=== PATIENT | female | born 1975 | race Caucasian/White ===

== ENCOUNTER 2016-07-16 23:50 | Emergency (ER) | payer OTHER ==
--- NOTE | ~2016-07-16 | EKG ---
PATIENT: JUSTINA DEWITT UNIT #: [id number] Ventricular Rate: 89 BPM Atrial Rate: 89 BPM P-R Interval: 150 ms QRS Duration: 76 ms Q-T Interval: 378 ms QTC Calculation(Bezet): 459 ms P [place]: 31 degrees Calculated R [place]: 22 degrees Calculated T [place]: 28 degrees Diagnosis Line: Normal sinus rhythm Diagnosis Line: Normal ECG Diagnosis Line: No previous ECGs available Diagnosis Line: Confirmed by KATALINA DYE MD ([id number]) on 07/23/2016 Diagnosis Line: 7:58:44 PM INTERPRETING MD: HARDIK ENAMORADO
--- NOTE | ~2016-07-16 | CT16 ---
[facility] A Service [facility] RADIOLOGY TEXT RESULTS PATIENT: JUSTINA DEWITT LOCATION: SED : [birth year] UNIT #: [id number] AGE: [address]: Ji Castelan DO SEX: F ORDER DR: [id number] [place] [id number] E MR#: [id number] Acc #: [id number] NAME: JUSTINA DEWITT : 1975 SEX: F STUDY DATE/TIME: 07/17/2016 2:18 UNIT: SED ROOM: STUDY DESCRIPTION: CT Angio Chest for PE Attending Physician: Ji Castelan D.O. Ordering Physician: Ji Castelan D.O. MEDICAL IMAGING REPORT This report is preliminary unless electronic signature is present. EXAM CTA chest PE protocol. INDICATION Chest pain, hypertension, elevated D-dimer level today. PROCEDURE Contrast-enhanced CTA of the chest attention on opacification of the pulmonary arteries. Coronal 3-D MIP sagittal reformatted images reconstructed and submitted. 100 mL Isovue-370. This CT exam was performed with one or more of the following radiation dose reduction techniques: automatic exposure control, adjustment of mA and/or kV according to patient size, and iterative reconstruction. COMPARISON None. FINDINGS No evidence for pulmonary embolus. No evidence for acute aortic injury. The lungs are clear. No aggressive appearing bone lesion. IMPRESSION No acute findings. No evidence for pulmonary embolus. Dictated by... Solis Varghese M.D. THIS IS AN ELECTRONICALLY VERIFIED REPORT Solis Varghese M.D. at 07/21/2016 7:30 AM [facility] A Service [facility] RADIOLOGY TEXT RESULTS PATIENT: JUSTINA DEWITT LOCATION: SED : [birth year] UNIT #: [id number] AGE: [address]: Ji Castelan DO SEX: F ORDER DR: CATHY/richelle TD: 07/17/2016 04:32 JOB #: [id number] MEDICAL IMAGING REPORT Page 1 of 1
--- NOTE | ~2016-07-16 | CT2 ---
[facility] A Service of [facility] RADIOLOGY TEXT RESULTS PATIENT: JUSTINA DEWITT LOCATION: SED : [birth year] UNIT #: [id number] AGE: [address]: Ji Castelan DO SEX: F ORDER DR: [id number] [place] [id number] E MR#: [id number] Acc #: [id number] NAME: JUSTINA DEWITT : 1975 SEX: F STUDY DATE/TIME: 07/17/2016 2:18 UNIT: SED ROOM: STUDY DESCRIPTION: CT Abd and Pelv W Cont Attending Physician: Ji Castelan D.O. Ordering Physician: Ji Castelan D.O. MEDICAL IMAGING REPORT This report is preliminary unless electronic signature is present. EXAM CT abdomen and pelvis with contrast. INDICATION Left upper quadrant abdominal pain today. PROCEDURE Contrast-enhanced CT of the abdomen and pelvis, 100 mL of Isovue-370. This CT exam was performed with one or more of the following radiation dose reduction techniques: automatic exposure control, adjustment of mA and/or kV according to patient size, and iterative reconstruction. COMPARISON None. FINDINGS Refer to separately dictated CTA of the chest for thoracic findings. ABDOMEN WITH CONTRAST: The liver, spleen, kidneys, adrenal glands, pancreas, gallbladder show no acute abnormality. Small hiatal hernia. The bowel loops are nondilated. There are a few patchy areas of hypoenhancement scattered throughout the spleen, largest measuring 1.6 cm. These are nonspecific. Pelvis with contrast, IUD in place. No pelvic mass or fluid. No aggressive-appearing bone lesion. IMPRESSION 1. No definite acute findings. 2. There are a few patchy areas of hypoenhancement in the spleen. It has [facility] A Service of [facility] RADIOLOGY TEXT RESULTS PATIENT: JUSTINA DEWITT LOCATION: SED : [birth year] UNIT #: [id number] AGE: [address]: Hottman,Ji M DO SEX: F ORDER DR: a nonspecific finding. It could be related to the phase of enhancement. These could also represent underlying, splenic cysts or hemangiomas. Possibility of malignancy is not excluded, but there is no other evidence for malignancy in the abdomen or pelvis. Correlate with any relevant history. These regions may be better characterized with abdominal MRI or multiphase CT if desired clinically. 3. Small hiatal hernia. Dictated by... Solis Varghese M.D. THIS IS AN ELECTRONICALLY VERIFIED REPORT Solis Varghese M.D. at 07/21/2016 7:30 AM CATHY/richelle TD: 07/17/2016 04:34 JOB #: [id number] MEDICAL IMAGING REPORT Page 1 of 1
--- NOTE | ~2016-07-16 | CR72 ---
[facility] A Service of [facility] RADIOLOGY TEXT RESULTS PATIENT: JUSTINA DEWITT LOCATION: SED : [birth year] UNIT #: [id number] AGE: [address]: Ji Castelan DO SEX: F ORDER DR: [id number] [place] [address] [id number] E MR#: [id number] Acc #: [id number] NAME: JUSTINA DEWITT : 1975 SEX: F STUDY DATE/TIME: 07/17/2016 0:26 UNIT: SED ROOM: STUDY DESCRIPTION: CR Chest Single View Portable Attending Physician: Ji Castelan D.O. Ordering Physician: Ji Castelan D.O. MEDICAL IMAGING REPORT This report is preliminary unless electronic signature is present. EXAM Portable chest. INDICATION Chest pain, shortness of air today. PROCEDURE Frontal view chest. COMPARISON None. FINDINGS Upper limits of normal to mildly enlarged heart size. No dense consolidation, effusion or pneumothorax. IMPRESSION 1. No active process. 2. Upper limits of normal to mildly enlarged heart size. Dictated by... Solis Varghese M.D. THIS IS AN ELECTRONICALLY VERIFIED REPORT Solis Varghese M.D. at 07/21/2016 7:30 AM EED/richelle TD: 07/17/2016 02:27 JOB #: [id number] [facility] A Service of [facility] RADIOLOGY TEXT RESULTS PATIENT: JUSTINA DEWITT LOCATION: SED : [birth year] UNIT #: [id number] AGE: [address]: Ji Castelan DO SEX: F ORDER DR: MEDICAL IMAGING REPORT Page 1 of 1
[2016-07-16] MEDS ORDERED: ACETAMINOPHEN (23:56)
[2016-07-16] MEDS ORDERED: PRILOSEC (23:57)
[2016-07-16] MEDS ORDERED: MOTRIN IB200 M1 (23:57)
[2016-07-17 00:17] LABS: BASOPHIL% 0.4 % (0-2.5); EOSINOPHIL# 0.3 X10e3 (0-0.7); EOSINOPHIL% 2.8 % (0.0-7.0); HEMATOCRIT 41.2 % (35.0-45.0); HEMOGLOBIN 13.4 gm/dL (12.0-16.0); LYMPHOCYTE# 2.7 X10e3 (1.0-3.5); LYMPHOCYTE% 24.7 % (17.0-45.0); MEAN CELL VOLUME 84.2 FL (83-96); MEAN CORPUSCULAR HEMOGLOBIN 27.3 PG (28-34); MEAN CORPUSCULAR HGB CONC 32.5 g/dL (30-36); MEAN PLATELET VOLUME 7.6 FL (6.5-11.5); MONOCYTE% 8.7 % (3.0-12.0); NEUTROPHIL# 6.9 X10e3 (1.5-7.1); NEUTROPHIL% 63.4 % (40-75); PLATELET COUNT 372 X10e3 (140-420); RED CELL DISTRIBUTION WIDTH 16.2 % (11.0-15.5); WHITE BLOOD COUNT 10.9 X10e3 (4.0-10.5)
[2016-07-17 00:19] LABS: DIFF IND NO
[2016-07-17 00:20] LABS: POC - CKMB <1.0 ng/mL (0.0-7.9); POC - MYOGLOBIN 57.2 ng/mL (0.0-169.0)
[2016-07-17 00:21] LABS: POC - TROPONIN <0.05 ng/mL (<=0.05)
[2016-07-17 00:24] LABS: INR 1.2; PROTHROMBIN TIME (PATIENT) 13.3 SECONDS (9.5-12.4)
[2016-07-17 00:28] LABS: ALBUMIN SERUM 4.2 g/dL (3.5-5.0); BILIRUBIN, DIRECT 0.1 mg/dL (0.0-0.2); BILIRUBIN,INDIRECT 0.4 mg/dL (0.0-0.9); BILIRUBIN,TOTAL 0.5 mg/dL (0.2-2.0); BUN/CREATININE RATIO 12.5; CALCIUM SERUM 9.1 mg/dL (8.4-10.2); CREATININE SERUM 0.8 mg/dL (0.6-1.4); GLOM FILT RATE Estimated 90.4 mL/min (>60); POTASSIUM 3.2 mmol/L (3.5-5.1); PROTEIN TOTAL SERUM 7.7 g/dL (6.0-8.3)
[2016-07-17 00:31] LABS: PARTIAL THROMBOPLASTIN TIME 30.1 SECONDS (25.6-38.1)
[2016-07-17 01:30] LABS: URINE SOURCE CLEAN CATCH
[2016-07-17 01:32] LABS: URINE APPEARANCE CLEAR; URINE BILIRUBIN NEG (NEG); URINE BLOOD TRACE-INTACT (NEG); URINE COLOR YELLOW; URINE GLUCOSE NEG (NORM); URINE KETONE NEG (NEG); URINE LEUKOCYTE ESTERASE 2+ (NEG); URINE NITRATE NEG (NEG); URINE PH 6.5 (5-8); URINE PROTEIN NEG (NEG); URINE SPECIFIC GRAVITY <=1.005 (1.003-1.035); URINE UROBILINOGEN 0.2 MG/DL (NORM)
[2016-07-17 01:44] LABS: MICRO INDICATED? YES
[2016-07-17 01:45] LABS: URINE WBC 25-50 /[HPF] (0-5)
[2016-07-17 01:46] LABS: CULTURE INDICATED? YES; URINE BACTERIA NEG (NEG); URINE SQUAMOUS EPITHELIAL CELL MODERATE /[HPF]; URINE TRANSITIONAL EPI CELLS FEW /[HPF]
[2016-07-17 02:00] LABS: POC - CKMB 1.2 ng/mL (0.0-7.9); POC - MYOGLOBIN 74.3 ng/mL (0.0-169.0)
[2016-07-17 02:01] LABS: POC - TROPONIN <0.05 ng/mL (<=0.05)
== END 2016-07-17 04:27 ==
LOC: SED 23:50
PROVIDERS: Emergency Medicine
DX: R07.89 Other chest pain (principal)
CPT/HCPCS: 36415; 71010; 71275; 74177; 80048; 80076; 81003; 82553; 83690; 83874; 84484; 84703; 85025; 85379; 85610; 85730; 87086; 93005; 99284; Q9967